=== PATIENT | female | born 1980 | race Caucasian/White ===

== ENCOUNTER 2024-03-12 13:49 | Outpatient (OUT) | payer OTHER, SELFPAY ==
--- NOTE | 2024-03-12 | CONS_ITS ---
CONSULTATION DATE: 03/12/2024 TO: Holli Velazquez M.D. and Ke Leong D.O. CHIEF COMPLAINT: Includes right lower back pain. HISTORY OF PRESENT ILLNESS: Review of systems, past medical/surgical history were obtained and documented on the health questionnaire and is available upon request. She is a 43-year-old female, reports significant pain starting over at least the last one year. It started in her mid back area and radiates down to her right lower back and right hip area. She describes it between 3-7/10 pain, sharp in character, with a throbbing component, increased with activities such as standing, walking, performing transitioning maneuvers. She feels most comfortable in the semi-recumbent position. Denies any change in bowel and bladder habits or new sensorimotor changes in the lower extremities. CURRENT MEDICATIONS: She has been using ibuprofen for at least the last two months with only marginal relief or varying degrees of relief at best. Her RAÚL was 18% on today?s visit. EXAM: Her examination is notable for patient having no clinical radiculopathy or myelopathy involving the lower extremities. She did have severe pain with lumbar facet joint loading maneuvers on the right side at L4-5, L5-S1 with severe myofascial spasm of the lumbar paravertebral muscles. IMPRESSION: Our impression is patient with chronic pain secondary to lumbosacral spondylosis, facet joint loading pain clinically and myofascial spasm. RECOMMENDATIONS: I recommend that she start baclofen 10 mg pills, half to one pill b.i.d., aquatic therapy, and to proceed with a diagnostic right side L4-5, L5-S1 medial branch block. As part of providing excellent, safe, comprehensive care, the following was completed at our patient's visit: 1. A medication reconciliation and review to ensure accurate knowledge of current/active medications, including asking our patients to inform us about any [id number] medications or herbal remedies/nutritional supplements/alternative remedies. 2. A review to specifically ensure our patients have had annual screening for: elevated body mass index (BMI, see intake chart for exact total), tobacco use, screening for depression, and screening for unhealthy alcohol use. When screening is concerning, patients are provided with education and the specific recommendation to discuss the concerning health issue and treatment options with their primary care provider. RAJAN
== END 2024-03-12 13:50 | disposition home or self-care (01) ==
PROVIDERS: PCP Family Medicine; Visit Provider Anesthesiology Pain Medicine
DX: M47.816 Spondylosis without myelopathy or radiculopathy, lumbar region (principal); M62.838 Other muscle spasm
CPT/HCPCS: G0463

== ENCOUNTER 2024-04-02 06:36 | Day surgery (SDC) | payer OTHER, SELFPAY ==
--- OUTSIDE RECORDS SUMMARY | 2024-04-02 06:39 | XMS_ITS | CCD ---
Author Organization [facility] Care Team Providers Care Supervisor Painting Name Role Phone Zena Lake MD Primary Care Provider AKIL SMILEY Attending ZENA Morris Primary Care Unavailable DILEEP GARLAND Attending DILEEP Johnson Referring Unavailab TC Huggins Attending TC Murphy Referring Unavailable HARLEY GUEVARA Attending TC Murphy Referring Unavailable Medications Completed/Discontinued Medications Medication Drug Class(es) Dates Sig (Normalized) Sig (Original) Ethinyl Estradiol / Levonorgestrel (3 sources) Progestin, Estrogen, Progestin-containi ng Intrauterine Device Start: 09-08-2023 End: 09-08-2023 Levonorgestrel-Ethi nyl Estrad (AVIANE) 0.1mg - 20mcg per tablet Indications: Endometriosis Take 1 tablet by mouth as directed. Take 3 112 tablet 4 09/08/2023 09/08/2023 Discontinued Start: 09-08-2023 take 1 tablet by montez th every week Levonorgestrel-Ethinyl Estrad (AVIANE) 0.1mg - 20mcg per tablet Indications: Endometriosis Take 1 tablet by mouth as directed. Skip week of placebo pills and start new blister pack. 112 tablet 4 09/08/2023 Active Comment on above: Take 1 tablet by montez th as directed. Skip week of placebo pills and start new blister pack. Take 1 tablet by montez th as directed. Take 3 Ethinyl Estradiol / norgestimate (1 source) Progestin, Estrogen Start: 10-07-20 End: 09-08-20 23 take 1 tablet by mouth once daily Norgestimate-Ethinyl Estradiol (TRI-SPRINTEC) 0.18/0.215/0.25 mg-35 mcg (28) ORAL Tab Take 1 tablet by mouth once daily. 1 Package 11 10/07/2011 09/08/2023 Discontinued (Discontinued by Patient) Comment on above: Take 1 tablet by montez th once daily. ibuprofen 800 mg oral tablet (1 source) Nonsteroidal Anti-inflammatory Drug Start: 10-07-20 11 End: 09-08-20 23 take 1 tablet by mouth every eight hours as needed ibuprofen 800 mg ORAL tablet Take 1 tablet by mouth every 8 hours as needed for Pain. 60 tablet 1 10/07/2011 09/08/2023 Discontinued (Discontinued by Patient) Comment on above: Take 1 tablet by montez th every 8 hours as needed for Pain. spironolactone 100 mg oral tablet (2 sources) Aldosterone Antagonist take 1 tablet by mouth once daily spironolactone (ALDACTONE) 100 mg tablet Take 100 mg by mouth once daily. 0 Active Comment on above: Take 100 mg by mouth once daily. Problems Problem Classification Problem Date Documented Date Episodic/Chronic Endometriosis (4 sources) Endometriosis (clinical); Translations: [Endometriosis, unspecified] Onset: 09-08-2023 09-08-2023 Chronic Results Test Name Value Interpretation Reference Range Facil ity MR LUMBAR SPINE WO CONTRASTo n 03-15-2024 MR LUMBAR SPINE WO CONTRAST EXAM: MR LUMBAR SPINE WO CONTRAST History: Low back pain Technique: Multiplanar multisequence MRI of the lumbar spine was obtained without intravenous contrast. Comparison: Lumbar spine radiographs February 06, 2024 Findings: The conus medullaris ends normally. The vertebral body heights are well maintained. There is no aggressive bone marrow signal abnormality. Disc desiccation and moderate intervertebral disc height loss at L5-S1. Degenerative endplate changes at L5-S1. L1-L2: No significant disc bulge or high-grade spinal canal or neuroforaminal stenosis. L2-L3: No significant disc bulge or high-grade spinal canal or neuroforaminal stenosis. L3-L4: No significant disc bulge or high-grade spinal canal or neuroforaminal stenosis. L4-L5: No significant disc bulge or high-grade spinal canal or neuroforaminal stenosis. L5-S1: Approximately 8 mm of anterolisthesis of L5 on S1 secondary to L5 spondylolysis. Small disc bulge. Mild facet arthropathy. Moderate bilateral neural foraminal stenosis. No spinal canal stenosis. Visualized paravertebral soft tissues appear within normal limits. IMPRESSION: Degenerative changes of the lumbar spine as detailed. ELECTRONICALLY SIGNED BY: Vishnu Melendez, Normal Not Available XR LUMBAR SPINE 4+ VIEWS WIT H FLEXION EXTENSIONon 02-06-2024 XR LUMBAR SPINE 4+ VIEWS WITH FLEXION EXTENSION EXAMINATION: XR LUMBAR SPINE 4+ VIEWS WITH FLEXION EXTENSION TECHNIQUE: 7 views of the lumbar spine. HISTORY: Low back pain COMPARISONS: None available. FINDINGS: There is approximately 10 mm of anterolisthesis of L5 on S1 in the neutral position which does not significantly change with flexion or extension. This anterolisthesis is secondary to L5 spondylolysis. Lumbar vertebral body heights are maintained. Moderate intervertebral disc height loss at L5-S1. Mild facet arthropathy of the lower lumbar spine. IMPRESSION: No acute osseous abnormality. Degenerative changes of the lower lumbar spine. ELECTRONICALLY SIGNED BY: Vishnu Melendez DO Normal Not Available Kelli 09-22-2023 [facility] Telephone (OBOLTW) NOA SILVESTRE ([id number]) 1980 F [place] Date Time Provider Department 09/22/23 KAIL SMILEY During your visit today, we recorded the following information about you: Gilda Whitfield RN 09/22/2023 3:48 PM Signed Letter received from [facility]- No records found on pt. Scanned into pt chart. Allergies As of Date: 09/22/2023 Noted Allergy Reaction NO KNOWN ALLERGIES 05/21/2010 Date Reviewed: 09/08/2023 Reviewed by: Mounika Brandon LPN - Fully Assessed Reason for Visit: Request Outside Medical Records [[id number]] Prescriptions as of 09/22/2023 - spironolactone (ALDACTONE) 100 mg tablet Take 100 mg by mouth once daily. - Levonorgestrel-Ethinyl Estrad (AVIANE) 0.1mg - 20mcg per tablet Take 1 tablet by mouth as directed. Skip week of placebo pills and start new blister pack. Problem List As Of Date 09/22/2023 Noted Resolved Endometriosis [N80.9] 09/08/2023 Encounter Status:Closed by GILDA WHITFIELD RN on 09/22/23 [facility] CNOVon 09-08-2023 CNOV Office Visit (OBOLTW ) NOA SILVESTRE ([id number]) 1980 F [place] Date Time Provider Department 09/08/23 9:00 AM AKIL SMILEY OBOLTW During your visit today, we recorded the following information about you: Pulse Blood pressure Weight Last Period 81/minute 112/78 82.1 kg 08/15/23 Akil Smiley MD 09/08/2023 2:07 PM Signed [facility] VISIT Subjective Noa is a 42 year old who presents with concern for worsening endometriosis pain. HPI: Noa reports dull aching back in her side and back. The pain has been present more often than not for the last 2 week. It is localized more to her right upper quadrant. It radiates toward her flank and back on that side. Her pain is a 4/10. She reports associated nausea throughout the day. She also reports feeling bloated. She feels like her food is not digesting quickly. She reports that she was diagnosed with endometriosis in 2009 at [place], [place]. Per the last AUDIO EXPERIENCE EXPERT note in our system from 2010, she had an XL, right ovarian cystectomy and resection of endometriosis on 03/17/2010. She reports also having a an emergency surgery in 2010 for intra-abdominal bleeding that was thought to be due to an ectopic as she was newly but was ultimately determined not to be due to an ectopic. Unclear what the etiology of her bleeding was. She was previously prescribed continuous OCPs for suppression prior to her first and was then on DMPA for 8 years after her last . She has been off of that for about 2 years. She has previously had a cholecystectomy in 2012. Menses occur typically every 28 days and last 3-4 days. Heaviest bleeding on day 2. Uses tampons. Changing them q 1.5 hours for hygenic reasons. She passes nickel sized clots with most periods. She reports mild to moderate cramping with menses. She will occasional use ibuprofen with good improvement. Age ?37 years and smoking ?15 cigarettes per day: No Multiple risk factors for arterial cardiovascular disease (such as older age, smoking, diabetes, and hypertension): No Hypertension (systolic ?160 mmHg or diastolic ?100 mmHg): No Venous thromboembolism (VTE; unless on anticoagulation): No Known ischemic heart disease: No History of stroke: No Complicated valvular heart disease (pulmonary hypertension, risk for atrial fibrillation, history of subacute bacterial endocarditis): No Current breast cancer: No Severe (decompensated) cirrhosis: No Hepatocellular adenoma or malignant hepatoma: No Migraine with aura: No Diabetes mellitus of >20 years duration or with nephropathy, retinopathy, or neuropathy: No OB History T3 L3 SAB0 IAB1 Ectopic0 Multiple0 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 Social History Tobacco Use Smoking status: Former Types: Cigarettes Smokeless tobacco: Never Tobacco comments: occasionally Substance Use Topics Alcohol use: Yes Comment: social Drug use: No Current Outpatient Medications Medication Sig spironolactone (ALDACTONE) 100 mg tablet Take 100 mg by mouth once daily. Levonorgestrel-Ethinyl Estrad (AVIANE) 0.1mg - 20mcg per tablet Take 1 tablet by mouth as directed. Skip week of placebo pills and start new blister pack. No current facility-administered medications for this visit. ALLERGIES Allergen Reactions No Known Allergies Review of Systems Constitutional: Negative for chills and fever. HENT: Negative for rhinorrhea, sneezing and sore throat. Respiratory: Negative for cough and shortness of breath. Cardiovascular: Negative for chest pain and palpitations. Gastrointestinal: Positive for abdominal pain and nausea. Negative for constipation, diarrhea and vomiting. Genitourinary: Positive for menstrual problem and pelvic pain. Negative for dyspareunia, dysuria, frequency, urgency, vaginal bleeding and vaginal discharge. Musculoskeletal: Positive for back pain. Negative for neck pain. Skin: Negative for rash and wound. Neurological: Negative for dizziness, syncope, light-headedness and headaches. Psychiatric/Behavioral : Negative for suicidal ideas. The patient is not nervous/anxious. Objective Vitals: Blood pressure 112/78, pulse 81, weight 181 lb (82.1 kg), la (more content not included)... Normal [facility]OBRoots[facility]atedTW[facility] NOA SILVESTRE ([id number]) 1980 F [place] Date Time Provider Department 09/08/23 AKIL SMILEY During your visit today, we recorded the following information about you: Ana John 09/08/2023 11:20 AM Signed Sanjay calling in asking for clarification on the Disp Refills Start End Levonorgestrel-Ethinyl Estrad (AVIANE) 0.1mg - 20mcg per tablet 112 tablet 4 09/08/2023 -- Sig: Take 1 tablet by mouth as directed. Take 3 Sent to pharmacy as: Levonorgestrel-Ethinyl Estrad (AVIANE) 0.1mg - 20mcg per tablet Class: Normal Route: ORAL Order: [id number] E-Prescribing Status: Receipt confirmed by pharmacy (09/08/2023 9:54 AM EDT) It states take 3 please advise, will take a verbal. Akil Smiley MD 09/08/2023 1:30 PM Signed Resent Rx with correct sig. Patient should take one tablet daily. She should skip placebo week of pills and start a new blister pack. Pharmacy should dispense 4 blister packs every 3 months. Allergies As of Date: 09/08/2023 Noted Allergy Reaction NO KNOWN ALLERGIES 05/21/2010 Date Reviewed: 09/08/2023 Reviewed by: Mounika Brandon LPN - Fully Assessed Reason for Visit: Medication Problem [65] Visit Diagnosis:Endometriosi s [N80.9] Prescriptions as of 09/08/2023 - spironolactone (ALDACTONE) 100 mg tablet Take 100 mg by mouth once daily. - Levonorgestrel-Ethinyl Estrad (AVIANE) 0.1mg - 20mcg per tablet Take 1 tablet by mouth as directed. Skip week of placebo pills and start new blister pack. Problem List As Of Date: 09/08/2023 (None) Encounter Status:Closed by MARCIA GA RN on 09/08/23 Normal [facility] HCG QUAL UR B/Oon 09-08-2023 status Negative neg - [facility] Quality Check Yes [facility] Vital Signs Date Time Vital Sign Value Performing Clinician Faci lity 09-08-2023 09:04-0400 Body weight 82.1 kg Akil Smiley MD Work Phone: [facility] 09-08-2023 09:04-0400 Diastolic blood pressure 78 mm[Hg] Akil Smiley MD Work Phone: [facility] 09-08-2023 09:04-0400 Heart rate 81 /min Akil Smiley MD Work Phone: [facility] 09-08-2023 09:04-0400 Systolic blood pressure 112 mm[Hg] Akil Smiley MD Work Phone: [facility] Encounters Encounter Date Encounter Type Care Provider Facility Start: 03-28-2024 End: 03-28-2024 ambulatory HARLEY GUEVARA Not Available Start: 03-15-2024 End: 03-16-2024 ambulatory TC KIM Not Available Start: 02-27-2024 End: 02-27-2024 ambulatory TC KIM Not Available Start: 02-06-2024 End: 02-07-2024 ambulatory DILEEP HOWELLPATRICK Not Available Start: 09-08-2023 Telephone encounter Saw Smiley MD Work Phone: Obstetrics/Gynecolog y Comment on above: Medication Problem Start: 09-08-2023 End: 09-08-2023 ambulatory AKIL SMILEY Facility:[facility] Start: 09-08-2023 End: 09-08-2023 Patient encounter procedure Akil Smiley MD Work Phone: Obstetrics/Gynecolog y Comment on above: Endometriosis (Prima ry Dx) Procedures Date Procedure Procedure Detail Performing Clinician Start: 09-08-2023 Urine test visual color cmprsn meths Akil Smiley MD Work Phone: Plan of Treatment Date Care Activity Detail Author Start: 09-08-2023 End: 09-08-2024 ENDOMETRIOSIS U/S [facility] ENDOMETRIOSIS U/[facility] Anc Imaging Routine Endometriosis Expected: 09/08/2023, Expires: 09/08/2024 [facility] Work Phone: Comment on above: Expected: 09/08/2023 , Expires: 09/08/2024 Start: 07-14-2023 Covid-19 Vaccine ( season) Covid-19 Vaccine () [facility] Start: 07-14-2023 Influenza vaccination Influenza Vacc ine (#1) [facility] Start: 2022 Mammography Mammogram Screening [facility] Start: 11-13-2022 Depression Assessment Depression Ass essment [facility] Start: 09-19-2022 Urine microalbumin profile DTaP,Tdap,Td Vaccine (2 - Td or Tdap) [facility] Start: 02-01-2016 Pap Testing Pap Testing [facility] Start: 2012 HPV Testing HPV Testing [facility] Start: 2000 Hepatitis C Screening Hepatitis C Sc reening [facility] Start: 2000 HIV Screening HIV Screening [facility] Start: 1980 Hepatitis B Vaccine (1 of 3 - 3-dose series) Hepatitis B Vaccine (1 of 3 - 3-dose series) [facility] Payers Date Payer Category Payer Private Health Insurance DAPHNIE CABEZAS [id number] 2022-Present [phone] [address] [place] [address] Open Access [id number] 2021 Private Health Insurance [id number] 1980 Unknown [id number] 1980 Unknown [id number] 1980 Unknown [id number] 1980 Unknown [id number] 1980 Unknown [id number] Social History Date Type Detail Facility Start: [facility]-08-[facility]23 [facility] History of tobacco use Current smoker [facility] History of tobacco use Cigarette Smoker [facility] Start: 09-08-2023 Tobacco use and exposure Smoke less tobacco non-user [facility] Start: 09-08-2023 Alcohol intake Current drinke r of alcohol (finding) [facility] Start: 09-08-2023 History of Social function [facility] Start: 09-08-2023 Tobacco use panel [facility] National Score (1-10 0), lower number is lower risk 88 [facility] Start: 09-08-2023 Tobacco Comment occasionally [facility] Start: 1980 Sex Assigned At Female C [facility] Start: 09-07-2023 Gender identity Identifies as female gender (finding) [facility] Start: 09-07-2023 Sexual orientation Heterosexual (rosalee ying) [facility] Note 09-08-2023 Telephone Encounter - Akil Smiley MD - 09/08/2023 1:29 PM EDTTelephone Encounter - Ana John - 09/08/2023 11:19 AM EDT Note Date & Type Note Facility 09-08-2023 Miscellaneous Notes Formattin g of this note might be different from the original. Resent Rx with correct sig. Patient should take one tablet daily. She should skip placebo week of pills and start a new blister pack. Pharmacy should dispense 4 blister packs every 3 months. Alvinor calling in asking for clarification on the Disp Refills Start End Levonorgestrel-Ethinyl Estrad (AVIANE) 0.1mg - 20mcg per tablet 112 tablet 4 09/08/2023 -- Sig: Take 1 tablet by mouth as directed. Take 3 Sent to pharmacy as: Levonorgestrel-Ethinyl Estrad (AVIANE) 0.1mg - 20mcg per tablet Class: Normal Route: ORAL Order: [id number] E-Prescribing Status: Receipt confirmed by pharmacy (09/08/2023 9:54 AM EDT) It states take 3 please advise, will take a verbal. documented in this encounter [facility] Progress note 09-08-2023 Note Date & Type Note Facility 09-08-2023 Note HNO ID: [id number] Author: Akil Smiley MD Service: ? Author Type: Physician Type: Progress Notes Filed: 09/08/2023 2:07 PM Note Text: [facility] VISIT Subjective Noa is a 42 year old who presents with concern for worsening endometriosis pain. HPI: Noa reports dull aching back in her side and back. The pain has been present more often than not for the last 2 week. It is localized more to her right upper quadrant. It radiates toward her flank and back on that side. Her pain is a 4/10. She reports associated nausea throughout the day. She also reports feeling bloated. She feels like her food is not digesting quickly. She reports that she was diagnosed with endometriosis in 2009 at [place], [place]. Per the last AUDIO EXPERIENCE EXPERT note in our system from 2010, she had an XL, right ovarian cystectomy and resection of endometriosis on 03/17/2010. She reports also having a an emergency surgery in 2011 for intra-abdominal bleeding that was thought to be due to an ectopic as she was newly but was ultimately determined not to be due to an ectopic. Unclear what the etiology of her bleeding was. She was previously prescribed continuous OCPs for suppression prior to her first and was then on DMPA for 8 years after her last . She has been off of that for about 2 years. She has previously had a cholecystectomy in 2011. Menses occur typically every 28 days and last 3-4 days. Heaviest bleeding on day 2. Uses tampons. Changing them q 1.5 hours for hygenic reasons. She passes nickel sized clots with most periods. She reports mild to moderate cramping with menses. She will occasional use ibuprofen with good improvement. Age ?37 years and smoking ?15 cigarettes per day: No Multiple risk factors for arterial cardiovascular disease (such as older age, smoking, diabetes, and hypertension): No Hypertension (systolic ?160 mmHg or diastolic ?100 mmHg): No Venous thromboembolism (VTE; unless on anticoagulation): No Known ischemic heart disease: No History of stroke: No Complicated valvular heart disease (pulmonary hypertension, risk for atrial fibrillation, history of subacute bacterial endocarditis): No Current breast cancer: No Severe (decompensated) cirrhosis: No Hepatocellular adenoma or malignant hepatoma: No Migraine with aura: No Diabetes mellitus of >20 years duration or with nephropathy, retinopathy, or neuropathy: No OB History T3 L3 SAB0 IAB1 Ectopic0 Multiple0 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 Social History Tobacco Use Smoking status: Former Types: Cigarettes Smokeless tobacco: Never Tobacco comments: occasionally Substance Use Topics Alcohol use: Yes Comment: social Drug use: No Current Outpatient Medications Medication Sig spironolactone (ALDACTONE) 100 mg tablet Take 100 mg by mouth once daily. Levonorgestrel-Ethinyl Estrad (AVIANE) 0.1mg - 20mcg per tablet Take 1 tablet by mouth as directed. Skip week of placebo pills and start new blister pack. No current facility-administered medications for this visit. ALLERGIES Allergen Reactions No Known Allergies Review of Systems Constitutional: Negative for chills and fever. HENT: Negative for rhinorrhea, sneezing and sore throat. Respiratory: Negative for cough and shortness of breath. Cardiovascular: Negative for chest pain and palpitations. Gastrointestinal: Positive for abdominal pain and nausea. Negative for constipation, diarrhea and vomiting. Genitourinary: Positive for menstrual problem and pelvic pain. Negative for dyspareunia, dysuria, frequency, urgency, vaginal bleeding and vaginal discharge. Musculoskeletal: Positive for back pain. Negative for neck pain. Skin: Negative for rash and wound. Neurological: Negative for dizziness, syncope, light-headedness and headaches. Psychiatric/Behavioral: Negative for suicidal ideas. The patient is not nervous/anxious. Objective Vitals: Blood pressure 112/78, pulse 81, weight 181 lb (82.1 kg), last menstrual period 08/15/2023. Physical Exam Constitutional: General: She is not in acute distress. Appearance: Normal appearance. She is not ill-appearing, toxic-appearing or diaphoretic. Genitourinary: Right Labia: No rash, tenderness, lesions or skin ch (more content not included)... [facility] History of Present illness Narrative 09-08-2023 Akil Smiley MD - 09/08/2023 9:00 AM EDT Note Date & Type Note Facility 09-08-2023 History of Presen t illness Narrative [facility] VISIT Subjective Noa is a 42 year old who presents with concern for worsening endometriosis pain. HPI: Noa reports dull aching back in her side and back. The pain has been present more often than not for the last 2 week. It is localized more to her right upper quadrant. It radiates toward her flank and back on that side. Her pain is a 4/10. She reports associated nausea throughout the day. She also reports feeling bloated. She feels like her food is not digesting quickly. She reports that she was diagnosed with endometriosis in 2009 at [place], [place]. Per the last AUDIO EXPERIENCE EXPERT note in our system from 2010, she had an XL, right ovarian cystectomy and resection of endometriosis on 03/17/2010. She reports also having a an emergency surgery in 2010 for intra-abdominal bleeding that was thought to be due to an ectopic as she was newly but was ultimately determined not to be due to an ectopic. Unclear what the etiology of her bleeding was. She was previously prescribed continuous OCPs for suppression prior to her first and was then on DMPA for 8 years after her last . She has been off of that for about 2 years. She has previously had a cholecystectomy in 2011. Menses occur typically every 28 days and last 3-4 days. Heaviest bleeding on day 2. Uses tampons. Changing them q 1.5 hours for hygenic reasons. She passes nickel sized clots with most periods. She reports mild to moderate cramping with menses. She will occasional use ibuprofen with good improvement. Age ?37 years and smoking ?15 cigarettes per day: No Multiple risk factors for arterial cardiovascular disease (such as older age, smoking, diabetes, and hypertension): No Hypertension (systolic ?160 mmHg or diastolic ?100 mmHg): No Venous thromboembolism (VTE; unless on anticoagulation): No Known ischemic heart disease: No History of stroke: No Complicated valvular heart disease (pulmonary hypertension, risk for atrial fibrillation, history of subacute bacterial endocarditis): No Current breast cancer: No Severe (decompensated) cirrhosis: No Hepatocellular adenoma or malignant hepatoma: No Migraine with aura: No Diabetes mellitus of >20 years duration or with nephropathy, retinopathy, or neuropathy: No OB History T3 L3 SAB0 IAB1 Ectopic0 Multiple0 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 Social History Tobacco Use Smoking status: Former Types: Cigarettes Smokeless tobacco: Never Tobacco comments: occasionally Substance Use Topics Alcohol use: Yes Comment: social Drug use: No Current Outpatient Medications Medication Sig spironolactone (ALDACTONE) 100 mg tablet Take 100 mg by mouth once daily. Levonorgestrel-Ethinyl Estrad (AVIANE) 0.1mg - 20mcg per tablet Take 1 tablet by mouth as directed. Skip week of placebo pills and start new blister pack. No current facility-administered medications for this visit. ALLERGIES Allergen Reactions No Known Allergies Review of Systems Constitutional: Negative for chills and fever. HENT: Negative for rhinorrhea, sneezing and sore throat. Respiratory: Negative for cough and shortness of breath. Cardiovascular: Negative for chest pain and palpitations. Gastrointestinal: Positive for abdominal pain and nausea. Negative for constipation, diarrhea and vomiting. Genitourinary: Positive for menstrual problem and pelvic pain. Negative for dyspareunia, dysuria, frequency, urgency, vaginal bleeding and vaginal discharge. Musculoskeletal: Positive for back pain. Negative for neck pain. Skin: Negative for rash and wound. Neurological: Negative for dizziness, syncope, light-headedness and headaches. Psychiatric/Behavioral: Negative for suicidal ideas. The patient is not nervous/anxious. Objective Vitals: Blood pressure 112/78, pulse 81, weight 181 lb (82.1 kg), last menstrual period 08/15/2023. Physical Exam Constitutional: General: She is not in acute distress. Appearance: Normal appearance. She is not ill-appearing, toxic-appearing or diaphoretic. Genitourinary: Right Labia: No rash, tenderness, lesions or skin changes. Left Labia: No tenderness, lesions, skin changes or rash. No labial fusion noted. Right Adnexa: tender. Right Adnexa: not full and no mass present. Left Adnexa: not tender, not full and no mass present. No cervical motion tenderness. Uterus is not enlarged, fixed, tender, irregular or prolapsed. No uterine mass detected. HENT: Head: Normocephalic and atraumatic. Eyes: General: No scleral icterus. Right eye: No discharge. Left eye: No discharge. Conjunctiva/sclera: Conjunctivae normal. Cardiovascular: Rate and Rhythm: Normal rate and regular rhythm. Heart sounds: Normal heart sounds. No murmur heard. No friction rub. No gallop. Pulmonary: Effort: Pulmonary effort is normal. No respiratory distress. Breath sounds: Normal breath sounds. No wheezing, rhonchi or rales. Abdominal: General: Abdomen is flat. Bowel sounds are normal. There is no distension. Palpations: Abdomen is soft. Tenderness: There is abdominal tenderness (diffuse cline abdominal). There is no guarding or rebound. Musculoskeletal: Cervical back: Normal range of motion. Neurological: General: No focal deficit present. Mental Status: She is alert and oriented to person, place, and time. Skin: General: Skin is warm and dry. Coloration: Skin is not jaundiced. Psychiatric: Mood and Affect: Mood normal. Behavior: Behavior normal. Thought Content: Thought content normal. Judgment: Judgment normal. Vitals reviewed. Exam conducted with a hogshead hooper present (Mounika Brandon MA). Assessment & Plan Problem List Items Addressed This Visit Endometriosis - Primary Overview Reported surgical diagnosis in 2009 in [place], [place] Current suppressive method: - Levonorgestrel - Ethinyl Estradiol (AVIANE) 0.1mg - 20mcg per tablet Prior suppressive method: - Depo medroxyprogesterone acetate IM Current Assessment & Plan Assessment: Noa is a 42 year old with a history of known endometriosis who has been off of suppressive medications for approximately 8 years and is now presenting with worsening pelvic pain symptoms. Abdominal and bimanual exams today are without focal abnormalities. Diffuse tenderness on palpation of the abdomen was noted. No recent imaging in our system to evaluate for adnexal pathology. Discussed the importance of menstrual suppression in patients with endometriosis to prevent pain and sequelae such intraperitoneal inflammation and scarring. I recommend starting continuous dosing of combined oral contraceptive pills for menstrual suppression and suppression of her endometriosis. Noa reports that she previously discontinued her DMPA due to associated mood symptoms and was concerned about mood related effects of combined oral contraceptive pills. I explained that the primary treatment for endometriosis is menstrual suppression and this is most exclusively achieved with exogenous hormones. I further explained that I cannot predict exactly her response to each exogenous hormones, but the dosing of progestins and combined oral contraceptive pills tends to be significantly less than the high-dose of medroxyprogesterone in the Depo-Provera injection. I also advised that there are multiple formulations of combined oral contraceptive pills on the market all with varying progestins. Encouraged her to reach out if unwanted side effects arise as her formulation can be changed to one with a different progestin or a different dose of estrogen as needed. Advised that imaging of the pelvis is warranted given her diffuse discomfort. Endometriosis pelvic ultrasound ordered. We also discussed using scheduled NSAIDs such as ibuprofen 600 mg every 6 hours as needed for pain related to her endometriosis. Also discussed that pending her response to medical management and the results of her endometriosis ultrasound, referral for surgical excision of endometriosis may be warranted. All questions answered to the best of my ability Plan: - schedule endometriosis ultrasound in [facility] at earliest convenience Relevant Medications Levonorgestrel-Ethinyl Estrad (AVIANE) 0.1mg - 20mcg per tablet Other Relevant Orders ENDOMETRIOSIS U/S [facility] HCG QUAL UR B/O (Completed) Follow Up Return for routine gynecologic wellness visit. Akil Smiley MD he/him/his Associate Staff Physician Obstetrics & Gynecology [place] 09/08/2023 2:06 PM --------- Medical Decision Making: Problems: Moderate: 1+ chronic illnesses with change Data: Unique source(s) for external note(s) reviewed: 1 Unique test(s) ordered: 2 Risk: Low: Low risk from testing/treatment Moderate: Drug management Medical Decision Making Level: 4 - Moderate documented in this encounter [facility] Evaluation note Note Date & Type Note Facility Evaluation note Diagnosis Endometriosis Endometriosis, site unspecified documented in this encounter [facility] Evaluation note Note Date & Type Note Facility Evaluation note Diagnosis Endometriosis- Primary Endometriosis, site unspecified documented in this encounter [facility] Reason for referral (narrative) Diagnostic Procedure Only (Routine) - Authorized Note Date & Type Note Facility Reason for referral (narrati ve) Specialty Diagnoses / Procedures Referred By Lindy olvera Referred To Contact [facility] Diagnoses Endometriosis Procedures ENDOMETRIOSIS U/S [facility] US PELVIC NONOBSTETRIC REAL[place] [id number] [place] [address] [facility] [address] [place] [address] Referral ID Status Reason Start Date Expiration Date Visits Requested Visits Authorized [id number] Authorized Auto-Generat ed Referral 3 09/07/2024 1 1 [facility] Summary Purpose Family History No Family History Records FoundNo Family History Records Found Advance Directives No Advanced Directives Records FoundNo Advanced Directives Records Found Additional Source Comments Source Comments (unrecognize d section and content) In the event this informatio n is protected by the Federal Confidentiality of Alcohol and Drug Abuse Patient Records regulations: The Federal rules restrict any use of the information to criminally investigate or prosecute any alcohol or drug abuse patient.[facility] the event this information is protected by the Federal Confidentiality of Alcohol and Drug Abuse Patient Records regulations: The Federal rules restrict any use of the information to criminally investigate or prosecute any alcohol or drug abuse patient.[facility] Reason for Visit (unrecogniz ed section and content) Reason Comments Medication Problem Reason Comments Endometriosis Patient is having se [place] pain again, SHE SAID ITS BEEN CLEAR FOR ABOUT 8 YEARS. Care Teams (unrecognized sec tion and content) Supervisor Painting Relationship Specialty Start Date End Date Wonderly, Zena Thacker MD PCP - General 05/18/10 Supervisor Painting Relationship Specialty Start Date End Date Alenly, Zena Thacker MD PCP - General 05/18/10 INFORMATION SOURCE (unrecogn ized section and content) DATE CREATED AUTHOR 09/24/2023 [facility] DATE CREATED AUTHOR AUTHOR'S ORGANIZ ATION 03/31/2024 [facility] FOR RECORDS PERTAINING TO PATIENTS WHO ARE OR HAVE BEEN ENROLLED IN A CHEMICAL DEPENDENCY/SUBSTANCEABUSE PROGRAM, SOME INFORMATION MAY BE OMITTED. This clinical summary was aggregated from multiple sources. Caution should be exercised in using it in the provision of clinical care. This summary normalizes information from multiple sources, and as a consequence, information in this document may materially change the coding, format and clinical context of patient data. In addition, data may be omitted in some cases. CLINICAL DECISIONS SHOULD BE BASED ON THE PRIMARY CLINICAL RECORDS. [facility] [employer] provides no warranty or guarantee of the accuracy or completeness of information in this document.
[2024-04-02 06:51] VITALS: BP 111/65; PULSE 75; TEMP 36.3; O2SAT 96
[2024-04-02 07:02] LABS: HCG Qualitative NEGATIVE (NEGATIVE)
[2024-04-02 07:56] VITALS: BP 105/57; BP 107/58; PULSE 72; PULSE 75; O2SAT 92; O2SAT 95
[2024-04-02] MEDS: BUPIVACAINE HCL 0.25% PF 25 MG/10 ML VIAL 3 ML INJ (07:57)
--- NOTE | 2024-04-02 09:05 | W.PM.PROCNOT ---
Date of procedure: 04/02/24 Pre-op diagnosis: Lumbar spondylosis Post-op diagnosis: same as pre-op Procedure: Right Lumbar4/5, 5/Sacral 1 medial branch block Under fluoroscopic guidance Solution injected: 2millilitersMarcaine 0.25% Anesthesia :none Immediate complications none Time out process compliant After informed consent obtained from the patient placed in the Prone proposition . area was prepped and draped in a sterile fashion using Cloraprep .25 gauge spinal needle inserted over each of the above mentioned target areas . [place] were directed towards the target under fluoroscopic guidance . after encountering each of the targets , no indication of intravascular intraneuronal or intrathecal needle tip placement. Then 0 .5 to 1 Milliliter was injected at each level. [place] removed postoperatively. patient transferred to recovery in stable condition to be discharged home after meeting criteria Anesthesia: Local Surgeon: Steph Morales Condition: stable
== END 2024-04-02 08:00 | disposition home or self-care (01) ==
PROVIDERS: PCP Family Medicine; Visit Provider Anesthesiology Pain Medicine
DX: M47.816 Spondylosis without myelopathy or radiculopathy, lumbar region (principal)
CPT/HCPCS: 36415; 64493; 64494; 84703

== ENCOUNTER 2024-04-25 08:00 | Outpatient (OUT) | payer OTHER, SELFPAY ==
--- OUTSIDE RECORDS SUMMARY | 2024-04-25 08:04 | XMS_ITS | CCD ---
Author Organization [facility] Care Team Providers Care Hired Hand Name Role Phone Zena Lake MD Primary Care Provider AKIL SMILEY Attending ZENA Morris Primary Care Unavailable DILEEP GARLAND Attending DILEEP Johnson Referring Unavailab TC Huggins Attending Unavailable TC KIM Referring Unavailable HARLEY GUEVARA Attending TC Murphy Referring Unavailable HARLEY GUEVARA [...] source) Progestin, Estrogen Start: 10-07-20 End: 09-08-20 take 1 tablet by mouth once daily [...] lower lumbar spine. ELECTRONICALLY SIGNED BY: Vishnu Melendez, Normal Not Available Kelli 09-22-2023 [facility] Telephone (OBOLTW) NOA SILVESTRE ([id number]) 1980 F [place] Date Time Provider Department 09/22/23 AKIL SMILEY During your visit today, we recorded the following information about you: Gilda Whitfield RN 09/22/2023 3:48 PM Signed Letter [facility]- No records found on pt. Scanned into pt chart. Allergies As of Date: 09/22/2023 Noted Allergy Reaction NO KNOWN ALLERGIES 05/21/2010 Date Reviewed: 09/08/2023 Reviewed by: Mounika Brandon LPN - Fully Assessed Reason for Visit: Request Outside Medical Records [[id number]] Prescriptions as of 09/22/2023 - spironolactone (ALDACTONE) 100 mg tablet Take 100 mg by mouth once daily. - Levonorgestrel-Ethinyl Estrad (AVIANE) 0.1mg - 20mcg per tablet Take 1 tablet by mouth as directed. Skip week of placebo pills and start new blister pack. Problem List As Of Date 09/22/2023 Noted Resolved Endometriosis [N80.9] 09/08/2023 Encounter Status:Closed by GILDA WHITFIELD RN on 09/22/23 [facility] CNOVon 09-08-2023 CNOV Office Visit (OBOLTW ) NOA SILVESTRE ([id number]) 1980 F [place] Date Time Provider Department 09/08/23 9:00 AM AKIL SMILEY OBOLTW During your visit today, we recorded the following information about you: Pulse Blood pressure Weight Last Period 81/minute 112/78 82.1 kg 08/15/23 Akil Smiley MD 09/08/2023 2:07 PM Signed [facility] OFFICE VISIT Subjective Noa is a 42 [...] was diagnosed with endometriosis in 2009 at [place], [place]. Per the last BLOCK MECHANIC note in our system from 2010, she [...] L3 SAB0 IAB1 Ectopic0 Multiple0 Live Births3 Filer Helper History LMP: 08/15/2023 (Approximate), Having periods Age at Menarche: Age at First : Age at Menopause: Filer Helper History Comments: Sexual Activity: Yes; Male Contraception: [...] kg), la (more content not included)... Normal [facility] 09-08-2023 [facility] (OBOLTW) NOA SILVESTRE ([id number]) 1980 F [place] Date Time Provider Department 09/08/23 AKIL SMILEY During your visit today, we recorded the following information about you: Ana John 09/08/2023 11:20 AM Signed Alvinor calling in asking for clarification on the Disp Refills Start End Levonorgestrel-Ethinyl Estrad (AVIANE) 0.1mg - 20mcg per tablet 112 tablet 4 09/08/2023 -- Sig: Take 1 tablet by mouth as directed. Take 3 Sent to pharmacy as: Levonorgestrel-Ethinyl Estrad (AVIANE) 0.1mg - 20mcg per tablet Class: Normal Route: ORAL Order: [id number] E-Prescribing Status: Receipt confirmed by pharmacy (09/08/2023 [...] by MARCIA GA RN on 09/08/23 Normal [facility] HCG QUAL UR B/Oon 09-08-2023 status Negative neg - pos [facility] Quality Check Yes [facility] Vital Signs Date Time Vital Sign Value Performing Clinician Bertin flores 09-08-2023 09:04-0400 Body weight 82.1 kg Akil Smiley MD Work Phone: [facility] 09-08-2023 09:04-0400 Diastolic blood pressure 78 mm[Hg] Akil Smiley MD Work Phone: [facility] 09-08-2023 09:04-0400 Heart rate 81 /min Akil Smiley MD Work Phone: [facility] 09-08-2023 09:04-0400 Systolic blood pressure 112 mm[Hg] Akil Smiley MD Work Phone: [facility] Encounters Encounter Date Encounter Type Care Provider Facility Start: 04-22-2024 End: 04-22-2024 ambulatory HARLEY GUEVARA Not Available Start: 03-28-2024 End: 03-28-2024 ambulatory HARLEY GUEVARA Not Available Start: 03-15-2024 End: 03-15-2024 ambulatory TC KIM Not Available Start: 02-27-2024 End: 02-27-2024 ambulatory TC KIM Not Available Start: 02-06-2024 End: 02-06-2024 ambulatory DILEEP GARLAND Not Available Start: 09-08-2023 Telephone encounter Saw Smiley MD Work Phone: Obstetrics/Gynecolog y Comment on above: Medication Problem Start: 09-08-2023 End: 09-08-2023 ambulatory AKIL SMILEY Facility:[facility] Start: 09-08-2023 End: 09-08-2023 Patient encounter procedure Akil Smiley MD Work Phone: Obstetrics/Gynecolog y Comment on above: Endometriosis (Prima ry Dx) Procedures Date Procedure Procedure Detail Performing Clinician Start: 09-08-2023 Urine test visual color cmprsn meths Akil Smiley MD Work Phone: Plan of Treatment Date Care Activity Detail Author Start: 09-08-2023 End: 09-08-2024 ENDOMETRIOSIS [facility] ENDOMETRIOSIS [facility]/S [facility] Anc Imaging Routine Endometriosis Expected: 09/08/2023, Expires: 09/08/2024 [facility] Work Phone: Comment on above: Expected: 09/08/2023 , Expires: 09/08/2024 Start: 07-14-2023 Covid-19 Vaccine () Covid-19 Vaccine () [facility] Start: 07-14-2023 Influenza vaccination Influenza Vacc ine (#1) [facility] Start: 2022 Mammography Mammogram Screening [facility] Start: 11-13-2022 Depression Assessment Depression Ass essment [facility] Start: 09-19-2022 Urine microalbumin profile DTaP,Tdap,Td Vaccine (2 - Td or Tdap) [facility] Start: 02-01-2016 Pap Testing Pap Testing [facility] Start: 2012 HPV Testing HPV Testing [facility] Start: 2000 Hepatitis C Screening Hepatitis C Sc cny [facility] Start: 2000 HIV Screening HIV Screening [facility] Start: 1980 Hepatitis B Vaccine (1 of 3 - 3-dose series) Hepatitis B Vaccine (1 of 3 - 3-dose series) [facility] Payers Date Payer Category Payer Private Health Insurance DAPHNIE KILPATRICK OAP [id number] 2022-Present [phone] [id number] [place] [address] Open Access [id number] 2021 Private Health Insurance [id number] 1980 Unknown [id number] 1980 Unknown [id number] 1982 Unknown [id number] 1982 Unknown [id number] 1980 Unknown [id number] 1980 Unknown [id number] Social History Date Type Detail Facility Start: 09-08-2023 [facility] History of tobacco use Current smoker [facility] History of tobacco use Cigarette Smoker [facility] Start: 09-08-2023 Tobacco use and exposure Smoke less tobacco non-user [facility] Start: 09-08-2023 Alcohol intake Current drinke r of alcohol (finding) [facility] Start: 09-08-2023 History of Social function [facility] Start: 09-08-2023 Tobacco use panel [facility] National Score (1-10 0), lower number is lower risk 88 [facility] Start: 09-08-2023 Tobacco Comment [facility] Start: 1980 Sex Assigned At Female [facility] Start: 09-07-2023 Gender identity Identifies as female gender (finding) [facility] Start: 09-07-2023 Sexual orientation Heterosexual (rosalee ying) [facility] Note 09-08-2023 Telephone Encounter - Akil Smiley [...] dispense 4 blister packs every 3 months. Sanjay calling in asking for clarification on the Disp Refills Start End Levonorgestrel-Ethinyl Estrad (AVIANE) 0.1mg - 20mcg per tablet 112 tablet 4 09/08/2023 -- Sig: Take 1 tablet by mouth as directed. Take 3 Sent to pharmacy as: Levonorgestrel-Ethinyl Estrad (AVIANE) 0.1mg - 20mcg per tablet Class: Normal Route: ORAL Order: [id number] E-Prescribing Status: Receipt confirmed by pharmacy (09/08/2023 9:54 AM EDT) It states take 3 please advise, will take a verbal. documented in this encounter [facility] Progress note 09-08-2023 Note Date & Type Note Facility 09-08-2023 Note HNO ID: [id number] Author: Akil Smiley MD Service: ? Author Type: Physician Type: Progress Notes Filed: 09/08/2023 2:07 PM Note Text: [facility] OFFICE VISIT Subjective Noa is a 42 [...] was diagnosed with endometriosis in 2009 at [place], [place]. Per the last BLOCK MECHANIC note in our system from 2010, she [...] L3 SAB0 IAB1 Ectopic0 Multiple0 Live Births3 Filer Helper History LMP: 08/15/2023 (Approximate), Having periods Age at Menarche: Age at First : Age at Menopause: Filer Helper History Comments: Sexual Activity: Yes; Male Contraception: [...] or skin ch (more content not included)... [facility] History of Present illness Narrative 09-08-2023 Akil Smiley MD - 09/08/2023 9:00 AM EDT Note Date & Type Note Facility 09-08-2023 History of Presen t illness Narrative [facility] OFF[facility] VISIT Subjective Noa is a 42 [...] was diagnosed with endometriosis in 2009 at [place], [place]. Per the last BLOCK MECHANIC note in our system from 2010, she [...] L3 SAB0 IAB1 Ectopic0 Multiple0 Live Births3 Filer Helper History LMP: 08/15/2023 (Approximate), Having periods Age at Menarche: Age at First : Age at Menopause: Filer Helper History Comments: Sexual Activity: Yes; Male Contraception: [...] normal. Vitals reviewed. Exam conducted with a administrative assistant office manager present (Mounika Brandon MA). Assessment & Plan Problem List Items Addressed This Visit Endometriosis - Primary Overview Reported surgical diagnosis in 2009 in [place], [place] Current suppressive method: - Levonorgestrel - [...] per tablet Other Relevant Orders ENDOMETRIOSIS U/S I HCG QUAL UR B/O (Completed) Follow Up Return for routine gynecologic wellness visit. Akil Smiley MD he/him/his Associate Staff Physician Obstetrics & Gynecology [place] 09/08/2023 2:06 PM --------- Medical Decision Making: Problems: Moderate: 1+ chronic illnesses with change Data: Unique source(s) for external note(s) reviewed: 1 Unique test(s) ordered: 2 Risk: Low: Low risk from testing/treatment Moderate: Drug management Medical Decision Making Level: 4 - Moderate documented in this encounter [facility] Evaluation note Note Date & Type Note Facility Evaluation note Diagnosis Endometriosis Endometriosis, site unspecified documented in this encounter [facility] Evaluation note Note Date & Type Note Facility Evaluation note Diagnosis Endometriosis- Primary Endometriosis, site unspecified documented in this encounter [facility] Reason for referral (narrative) Diagnostic Procedure Only (Routine) - Authorized Note Date & Type Note Facility Reason for referral (narrati ve) Specialty Diagnoses / Procedures Referred By Contac t Referred To Contact [facility] Diagnoses Endometriosis Procedures ENDOMETRIOSIS U/S WHI US PELVIC NONOBSTETRIC REAL[place] [id number] [place] [address] [facility] [address] [place] [address] Referral ID Status Reason Start Date Expiration Date Visits Requested Visits Authorized [id number] Authorized Auto-Generat ed Referral 3 09/07/2024 1 1 [facility] Summary Purpose Family History No Family History [...] or prosecute any alcohol or drug abuse patient.[facility] the event this information is protected by the Federal Confidentiality of Alcohol and Drug Abuse Patient Records regulations: The Federal rules restrict any use of the information to criminally investigate or prosecute any alcohol or drug abuse patient.[facility] Reason for Visit (unrecogniz ed section and content) Reason Comments Medication Problem Reason Comments Endometriosis Patient is having se flores pain again, SHE SAID ITS BEEN CLEAR FOR ABOUT 8 YEARS. Care Teams (unrecognized sec tion and content) Hired Hand Relationship Specialty Start Date End Date Wonderly, Zena Thacker MD PCP - General 05/18/10 Hired Hand Relationship Specialty Start Date End Date Wonderly, eZna Thacker MD PCP - General 05/18/10 INFORMATION SOURCE (unrecogn ized section and content) DATE CREATED AUTHOR 09/24/2023 [facility] DATE CREATED AUTHOR AUTHOR'S GROVER CASPER 04/22/2024 [facility] dical Specialists [facility] FOR RECORDS PERTAINING TO PATIENTS WHO ARE [...] BE BASED ON THE PRIMARY CLINICAL RECORDS. [employer] provides no warranty or guarantee of the accuracy or completeness of information in this document.
--- NOTE | 2024-04-25 08:05 | P.CN_ITS ---
Consult Note: HPI Data of Consult Patient: known to practice within the last 3 years Requesting Physician: Yanet Mendez NP Primary Care Provider: SALVATORE LORA Consult Narrative Reason for consult: chronic right sided low back pain Narrative: Noa Burden a pleasant 43 year old female presents for evaluation and management of chronic right sided low back pain without radiculopathy. Patient has had chronic low back pain greater than 1 year that has failed to respond to greater than 6 weeks of PT/HEP, conservative medications such as tylenol and ibuprofen, and heat/ice. Patient reports pain 3/10, increasing to 7/10 with running, standing, walking, twisting, heavy lifting. Pain sharp aching throbbing, occasional sharp and intense. recently underwent right L4-5 L5-S1 facet medial branch block #1 with no improvement. Patient has not started baclofen 10mg BID PRN due to concerns of side effects. cc:: CC: Yanet Mendez NP Review of Systems ROS Status of ROS 10 or more systems reviewed and unremark able except as noted in history and below Musculoskeletal Reports: back pain and joint pain PFSH PFS Medical History (Updated 04/25/24 @ 08:32 by Yanet Mendez NP) Neck pain ?M54.2 - Cervicalgia (ICD-10) Low back pain ?M54.50 - Low back pain, unspecified (ICD-10) Asthma ?J45.909 - Unspecified asthma, uncomplicated (ICD-10) Form of muscle Irregular heart beat ?I49.9 - Cardiac arrhythmia, unspecified (ICD-10) Surgical History S/P cholecystectomy ?Z90.49 - Acquired absence of other specified parts of digestive tract (ICD- 10) S/P laparoscopy ?Z98.890 - Other specified postprocedural states (ICD-10) S/P laparotomy ?Z98.890 - Other specified postprocedural states (ICD-10) Meds Home Medications and Allergies Home Medications ?Medication ?Instructions ?Recorded ?Confirmed ?Type baclofen 10 mg tablet 10 mg PO BID PRN muscle spasm 03/13/24 04/02/24 History semaglutide 0.25 mg or 0.5 mg (2 0.25 mg subcut QWEEK 03/13/24 04/02/24 History mg/3 mL) subcutaneous pen injector (Ozempic) spironolactone 100 mg tablet 100 mg PO DAILY 03/13/24 04/02/24 History Allergies Allergy/AdvReac Type Severity Reaction Status Date / Time No Known Drug Allergies Allergy Verified 04/02/24 06:58 Exam Constitutional Documenting provider has reviewed patient's vital signs: yes Common normals: no apparent distress, oriented x3, healthy appearing, alert and well nourished General appearance: cooperative HENMT Common normals: normocephalic, hearing grossly normal bilaterally and moist oral mucous membranes Head and scalp: normocephalic Eye Common normals: PERRL Pupil: PERRL Neck & C-Spine Common normals: full ROM General: normal visual inspection Chest Common normals: inspection of chest normal Respiratory Common normals: normal respiratory effort, no retractions and no use of accessory muscles Back & Pelvis Lumbar spine/lower back: ROM limited, pain with ROM, paraspinal muscle tenderness, paraspinal muscle spasm and straight leg raise negative bilaterally Sacroiliac joints: SI joint(s) abnormal Other: Right SIJ positive eloy(patricks), gaenslens, thigh thrust, compression test notable myofascial swelling/spasms to right paralumbar spine tenderness and dysthesia across right superior gluteal nerve Extremity Common normals: normal to inspection and full ROM Neuro Common normals: oriented x3, CN's II-XII intact bilaterally, moves all extremities, no focal motor deficits, no sensory deficits noted, deep tendon reflexes 2+ bilaterally and gait normal Sensorium/orientation: alert Motor exam: strength 5/5 throughout and no movement abnormalities noted Psych Common normals: mental status grossly normal, thought process normal, cooperative, affect normal, speech normal and activity/motor behavior normal Speech: normal speech Thought process: normal thought process Results Additional Findings Additional findings: If on a controlled substance or opioids, I have checked an [place]AR[place] report on this patient and there are no aberrancies noted in the prescribing history.??If on a controlled substance or opioid a drug screen was completed and reviewed within the last year, and if there has not been a drug screen completed we ordered one today to monitor higher risk, state monitored pain medication use. As part of providing excellent, safe, comprehensive care, the following was completed at our patient's visit: 1. A medication reconciliation and review to ensure accurate knowledge of current/active medications, including asking our patients to inform us about any asbi-din-ghmipdz medications or herbal remedies/nutritional supplements/alternative remedies. 2. A review to specifically ensure our patients have had annual screening for screening for depression, screening for tobacco use, and screening for unhealthy alcohol use. For concerning screenings had a discussion with the patient, provided patient education, and recommended follow-up with primary care provider when appropriate. If patient noted with a risk of falling, they received education on strength, gait, and balance training to prevent future risk of falling. Assessment and Plan Assessment and Plan (1) Unspecified mononeuropathy of right lower limb: (2) Chronic right-sided low back pain without sciatica: (3) Lumbar spondylosis: (4) Spondylolisthesis, lumbar region: (5) Sacroiliitis: (6) Myofascial pain: Plan right superior gluteal nerve block under fluoroscopy working towards thermal RFA discussed utilizing baclofen 5-10mg BID PRN TENS unit discussed and prescribed, previously found significant benefit continue progressive care manager as tolerated, hx of leg length discrepancy requiring orthotics for right shoe. notable SIJ pain on exam today continue HEP as tolerated f/u after injection
== END 2024-04-25 08:01 | disposition home or self-care (01) ==
LOC: PM 08:01
PROVIDERS: PCP Family Medicine; Visit Provider Nurse Practitioner
DX: G57.91 Unspecified mononeuropathy of right lower limb (principal); M54.50 Low back pain, unspecified; M47.816 Spondylosis without myelopathy or radiculopathy, lumbar region; M43.16 Spondylolisthesis, lumbar region; M46.1 Sacroiliitis, not elsewhere classified; M79.18 Myalgia, other site
CPT/HCPCS: G0463

== ENCOUNTER 2024-04-30 07:21 | Day surgery (SDC) | payer OTHER, SELFPAY ==
[2024-04-30 07:35] VITALS: BP 102/66; PULSE 85; TEMP 36.2; O2SAT 98
[2024-04-30 08:01] LABS: HCG Qualitative NEGATIVE (NEGATIVE); Internal Control Within Normal Limits
[2024-04-30 08:25] VITALS: BP 105/67; PULSE 70; O2SAT 98
[2024-04-30 08:26] VITALS: BP 108/65; PULSE 70; O2SAT 98
[2024-04-30] MEDS: BUPIVACAINE HCL 0.25% PF 25 MG/10 ML VIAL 2 ML INJ (08:30)
--- NOTE | 2024-04-30 09:19 | W.PM.PROCNOT ---
Date of procedure: 04/30/24 Pre-op diagnosis: Right superior gluteal neuritis Post-op diagnosis: same as pre-op Procedure: Right Superior gluteal nerve block, diagnostic Performed under fluoroscopic guidance Immediate complications none Anesthesia: none Solution used for injection: In each syringe, 2 milliliters 0.25% Marcaine 2.5 mL is used for injection for each side Time out process compliant After informed consent obtained patient was brought to the procedure room placed in the prone position skin overlying the area was prepped and draped in a sterile fashion using betadine. 25 gauge spinal needle Insert over each of the target areas identified in fluoroscopy corresponding needles were advanced Under fluoroscopic guidance until the target/targets encountered, no indication of intravascular or Intraneuronal needle tip placement. Solution injected.needles removed post procedurally. patient transferred to recovery room in stable condition to be discharged home after meeting criteria Anesthesia: Local Surgeon: Steph Morales Condition: stable
== END 2024-04-30 08:39 | disposition home or self-care (01) ==
LOC: SURGOUT 07:21
PROVIDERS: PCP Family Medicine; Visit Provider Anesthesiology Pain Medicine
DX: G57.81 Other specified mononeuropathies of right lower limb (principal)
CPT/HCPCS: 36415; 64450; 84703; J0665

== ENCOUNTER 2024-05-09 13:35 | Outpatient (OUT) | payer OTHER, SELFPAY ==
--- OUTSIDE RECORDS SUMMARY | 2024-05-09 13:56 | XMS_ITS | CCD ---
Author Organization [facility] Care Team Providers Care Carburetor Mechanic Name Role Phone Zena Lake MD Primary [...] Vishnu Melendez, Normal Not Available Kelli 09-22-2023 [facility] Telephone (OBOLTW) NOA SILVESTRE ([id number]) 1980 F [place] Date Time Provider Department 09/22/23 AKIL SMILEY During your visit today, we recorded the following information about you: Gilda Whitfield RN 09/22/2023 3:48 PM Signed Letter received from [facility]- No records found on pt. Scanned into pt chart. Allergies As of Date: 09/22/2023 Noted Allergy Reaction NO KNOWN ALLERGIES 05/21/2010 Date Reviewed: 09/08/2023 Reviewed by: Mounika Brandon LPN - Fully Assessed Reason for Visit: Request Outside Medical Records [[id number]] Prescriptions as of 09/22/2023 - spironolactone (ALDACTONE) 100 mg tablet Take 100 mg by mouth once daily. - Levonorgestrel-Ethinyl Estrad (AVIANE) 0.1mg - 20mcg per tablet Take 1 tablet by mouth as directed. Skip week of placebo pills and start new blister pack. 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 Per the last CREAM BEATER note in our system from 2010, she [...] L3 SAB0 IAB1 Ectopic0 Multiple0 Live Births3 Secy History LMP: 08/15/2023 (Approximate), Having periods Age at Menarche: Age at First : Age at Menopause: Secy History Comments: Sexual Activity: Yes; Male Contraception: [...] kg), la (more content not included)... Normal [facility]08[facility]OB[facility] NOA SILVESTRE ([id number]) 1980 F [place] Date Time Provider Department [...] per tablet Class: Normal Route: ORAL Order: [id number] E-Prescribing Status: Receipt confirmed by pharmacy (09/08/2023 [...] by MARCIA GA RN on 09/08/23 Normal [facility] HCG QUAL UR B/Oon 09-08-2023 status Negative neg - pos [facility] Quality Check Yes [facility] Vital Signs Date Time Vital Sign Value Performing Clinician Bertin flores 09-08-2023 09:04-0400 Body weight 82.1 kg Akil Smiley MD Work Phone: [facility] 09-08-2023 09:04-0400 Diastolic blood pressure 78 mm[Hg] Akil Smiley MD Work Phone: [facility] 09-08-2023 09:04-0400 Heart rate 81 /min Akil Smiley MD Work Phone: [facility] 09-08-2023 09:04-0400 Systolic blood pressure 112 mm[Hg] Akil Smiley MD Work Phone: [facility] Encounters Encounter Date Encounter Type Care Provider [...] Start: 09-08-2023 End: 09-08-2023 ambulatory AKIL SMILEY Facility:[facility] Start: 09-08-2023 End: 09-08-2023 Patient encounter procedure Akil Smiley MD Work Phone: Obstetrics/Gynecolog y Comment on above: Endometriosis (Prima ry Dx) Procedures Date Procedure Procedure Detail Performing Clinician Start: 09-08-2023 Urine test visual color cmprsn meths Akil Smiley MD Work Phone: Plan of Treatment Date Care Activity Detail Author Start: 09-08-2023 End: 09-08-2024 ENDOMETRIOSIS [facility] ENDOMETRIOSIS [facility] Anc Imaging Routine Endometriosis Expected: 09/08/2023, Expires: 09/08/2024 [facility] Work Phone: Comment on above: Expected: 09/08/2023 , Expires: 09/08/2024 Start: 07-14-2023 Covid-19 Vaccine () Covid-19 Vaccine () [facility] Start: 07-14-2023 Influenza vaccination Influenza Vacc ine (#1) [facility] Start: 2022 Mammography Mammogram Screening [facility] Start: 11-13-2022 Depression Assessment Depression Ass essment [facility] Start: 09-19-2022 Urine microalbumin profile DTaP,Tdap,Td Vaccine (2 - Td or Tdap) [facility] Start: 02-01-2016 Pap Testing Pap Testing [facility] Start: 2012 HPV Testing HPV Testing [facility] Start: 2000 Hepatitis C Screening Hepatitis C Sc cyn [facility] Start: 2000 HIV Screening HIV Screening [facility] Start: 1980 Hepatitis B Vaccine (1 of 3 - 3-dose series) Hepatitis B Vaccine (1 of 3 - 3-dose series) [facility] Payers Date Payer Category Payer Private Health Insurance DAPHNIE KILPATRICK OAP [id number] 2022-Present [phone] [address] [place] [address] Open Access [id number] 2021 Private Health Insurance [id number] 1980 Unknown [id number] 1980 Unknown [id number] 1980 Unknown [id number] 1980 Unknown [id number] 1982 Unknown [id number] 1980 Unknown [id number] Social History Date Type Detail Facility Start: 09-08-2023 [facility] History of tobacco use Current smoker [facility] History of tobacco use Cigarette Smoker [facility] Start: 09-08-2023 Tobacco use and exposure Smoke less tobacco non-user [facility] Start: 09-08-2023 Alcohol intake Current drinke r of alcohol (finding) [facility] Start: 09-08-2023 History of Social function [facility] Start: 09-08-2023 Tobacco use panel [facility] National Score (1-10 0), lower number is lower risk 88 [facility] Start: 09-08-2023 Tobacco [facility] Start: 1980 Sex Assigned At Female [facility] Start: 09-07-2023 Gender identity Identifies as female gender (finding) [facility] Start: 09-07-2023 Sexual orientation Heterosexual (rosalee ying) [facility] Note 09-08-2023 Telephone Encounter - Akil Smiley [...] per tablet Class: Normal Route: ORAL Order: [id number] E-Prescribing Status: Receipt confirmed by pharmacy (09/08/2023 9:54 AM EDT) It states take 3 please advise, will take a verbal. documented in this encounter [facility] Progress note 09-08-2023 Note Date & Type Note Facility 09-08-2023 Note HNO ID: [id number] Author: Akil Smiley MD Service: ? 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 Per the last CREAM BEATER note in our system from 2010, she [...] L3 SAB0 IAB1 Ectopic0 Multiple0 Live Births3 Secy History LMP: 08/15/2023 (Approximate), Having periods Age at Menarche: Age at First : Age at Menopause: Secy History Comments: Sexual Activity: Yes; Male Contraception: [...] or skin ch (more content not included)... 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 Per the last CREAM BEATER note in our system from 2010, she [...] L3 SAB0 IAB1 Ectopic0 Multiple0 Live Births3 Secy History LMP: 08/15/2023 (Approximate), Having periods Age at Menarche: Age at First : Age at Menopause: Secy History Comments: Sexual Activity: Yes; Male Contraception: [...] normal. Vitals reviewed. Exam conducted with a manager utilities present (Mounika Brandon MA). 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 [facility] [place] 09/08/2023 2:06 PM --------- Medical Decision Making: Problems: Moderate: 1+ chronic illnesses with change Data: Unique source(s) for external note(s) reviewed: 1 Unique test(s) ordered: 2 Risk: Low: Low risk from testing/treatment Moderate: Drug management Medical Decision Making Level: 4 - Moderate documented in this encounter [facility] Evaluation note Note Date & Type Note Facility Evaluation note Diagnosis Endometriosis Endometriosis, site unspecified documented in this encounter [facility] Evaluation note Note Date & Type Note Facility Evaluation note Diagnosis Endometriosis- Primary Endometriosis, site unspecified documented in this encounter [facility] Reason for referral (narrative) Diagnostic Procedure Only (Routine) - Authorized Note Date & Type Note Facility Reason for referral (narrati ve) Specialty Diagnoses / Procedures Referred By Contac t Referred To Contact [facility] Diagnoses Endometriosis Procedures ENDOMETRIOSIS U/S WHI US PELVIC NONOBSTETRIC REAL[place] [address] [place] [address] [facility] [address] [place] [address] Referral ID Status Reason Start Date Expiration Date Visits Requested Visits Authorized [id number] Authorized Auto-Generat ed Referral 3 09/07/2024 1 1 [facility] Summary Purpose Family History No Family History [...] or prosecute any alcohol or drug abuse patient.[facility] the event this information is protected by the Federal Confidentiality of Alcohol and Drug Abuse Patient Records regulations: The Federal rules restrict any use of the information to criminally investigate or prosecute any alcohol or drug abuse patient.[facility] Reason for Visit (unrecogniz ed section and content) Reason Comments Medication Problem Reason Comments Endometriosis Patient is having se flores pain again, SHE SAID ITS BEEN CLEAR FOR ABOUT 8 YEARS. Care Teams (unrecognized sec tion and content) Carburetor Mechanic Relationship Specialty Start Date End Date Wonderly, Zena Thacker MD PCP - General 05/18/10 Carburetor Mechanic Relationship Specialty Start Date End Date Wonderly, Zena Thacker MD PCP - General 05/18/10 INFORMATION SOURCE (unrecogn ized section and content) DATE CREATED AUTHOR 09/24/2023 [facility] DATE CREATED AUTHOR AUTHOR'S GROVER CASPER 04/22/2024 [facility] dical Specialists [facility] FOR RECORDS PERTAINING TO PATIENTS WHO ARE [...] BE BASED ON THE PRIMARY CLINICAL RECORDS. [employer] provides no warranty or guarantee of the accuracy or completeness of information in this document.
--- NOTE | 2024-05-09 14:07 | P.CN_ITS ---
Consult Note: HPI Data of Consult Patient: known to practice within the last 3 years Requesting Physician: Yanet Mendez NP Primary Care Provider: SALVATORE LORA Consult Narrative Reason for consult: chronic right sided low back pain Narrative: Noa Burden a pleasant 43 year old female presents for evaluation and management of chronic right sided low back pain. Patient has had chronic low back pain greater than 1 year that has failed to respond to greater than 6 weeks of PT/HEP, conservative medications such as tylenol and ibuprofen, and heat/ice. Lumbar MRI reveals lumbar spondylosis, and moderate bilateral foraminal narrowing at L5-S1. Patient reports pain 6/10, increasing to 8/10 with running, standing, walking, twisting, heavy lifting. Pain sharp aching throbbing, occasional sharp and intense. recently underwent right L4-5 L5-S1 facet medial branch block #1 with no improvement and right superior gluteal nerve injection w ithout improvement. Patient has not started baclofen 10mg BID PRN due to concerns of side effects. Mild relief from TENS unit. cc:: CC: Yanet Mendez NP Review of Systems ROS Status of ROS 10 or more systems reviewed and unremark able except as noted in history and below Musculoskeletal Reports: back pain, extremity pain and joint pain PFSH [facility] Medical History (Updated 05/09/24 @ 14:08 by Yanet Mendez NP) Neck pain ?M54.2 - Cervicalgia (ICD-10) Low back pain ?M54.50 - Low back pain, unspecified (ICD-10) Asthma ?J45.909 - Unspecified asthma, uncomplicated (ICD-10) Form of muscle Irregular heart beat ?I49.9 - Cardiac arrhythmia, unspecified (ICD-10) Surgical History S/P cholecystectomy ?Z90.49 - Acquired absence of other specified parts of digestive tract (ICD- 10) S/P laparoscopy ?Z98.890 - Other specified postprocedural states (ICD-10) S/P laparotomy ?Z98.890 - Other specified postprocedural states (ICD-10) Meds Home Medications and Allergies Home Medications ?Medication ?Instructions ?Recorded ?Confirmed ?Type baclofen 10 mg tablet 10 mg PO BID PRN muscle spasm 05/01/24 06/18/24 History semaglutide 0.25 mg or 0.5 mg (2 0.25 mg subcut QWEEK 03/13/24 04/30/24 History mg/3 mL) subcutaneous pen injector (Ozempic) spironolactone 100 mg tablet 100 mg PO DAILY 03/13/24 04/30/24 History Allergies Allergy/AdvReac Type Severity Reaction Status Date / Time No Known Drug Allergies Allergy Verified 04/30/24 07:39 Exam Constitutional Documenting provider has reviewed patient's vital signs: yes Common normals: no apparent distress, oriented x3, healthy appearing, alert and well nourished General appearance: cooperative HENMT Common normals: normocephalic, hearing grossly normal bilaterally and moist oral mucous membranes Head and scalp: normocephalic Eye Common normals: PERRL Pupil: PERRL Neck & C-Spine Common normals: full ROM General: normal visual inspection Chest Common normals: inspection of chest normal Respiratory Common normals: normal respiratory effort, no retractions and no use of accessory muscles Back & Pelvis Lumbar spine/lower back: ROM limited, pain with ROM, paraspinal muscle tenderness, paraspinal muscle spasm and straight leg raise negative bilaterally Sacroiliac joints: SI joint(s) abnormal Other: Right SIJ positive eloy(patricks), gaenslens, thigh thrust, compression test notable myofascial swelling/spasms to right paralumbar spine tenderness and dysthesia across right superior gluteal nerve Extremity Common normals: normal to inspection and full ROM Neuro Common normals: oriented x3, CN's II-XII intact bilaterally, moves all extremities, no focal motor deficits, no sensory deficits noted and deep tendon reflexes 2+ bilaterally Sensorium/orientation: alert Motor exam: strength 5/5 throughout and no movement abnormalities noted Psych Common normals: mental status grossly normal, thought process normal, cooperative, affect normal, speech normal and activity/motor behavior normal Speech: normal speech Thought process: normal thought process Results Additional Findings Additional findings: If on a controlled substance or opioids, I have checked an [place]AR[place] report on this patient and there are no aberrancies noted in the prescribing history.??If on a controlled substance or opioid a drug screen was completed and reviewed within the last year, and if there has not been a drug screen completed we ordered one today to monitor higher risk, state monitored pain medication use. As part of providing excellent, safe, comprehensive care, the following was completed at our patient's visit: 1. A medication reconciliation and review to ensure accurate knowledge of current/active medications, including asking our patients to inform us about any [id number] medications or herbal remedies/nutritional supplements/alternative remedies. 2. A review to specifically ensure our patients have had annual screening for screening for depression, screening for tobacco use, and screening for unhealthy alcohol use. For concerning screenings had a discussion with the patient, provided patient education, and recommended follow-up with primary care provider when appropriate. If patient noted with a risk of falling, they received education on strength, gait, and balance training to prevent future risk of falling. Assessment and Plan Assessment and Plan (1) Lumbar stenosis with neurogenic claudication: (2) Unspecified mononeuropathy of right lower limb: (3) Chronic right-sided low back pain without sciatica: (4) Lumbar spondylosis: (5) Spondylolisthesis, lumbar region: (6) Sacroiliitis: (7) Myofascial pain: Plan refer to Dr Rivera for evaluation of right paralumbar and SIJ pain unresponsive to right L4-5 L5-S1 MBB and right superior gluteal nerve block. mild relief from TENS and motrin. could consider bilateral L5-S1 TFESI with Dr Wright under fluoroscopy for moderate bilateral foraminal stenosis and NC after evaluation with Dr Rivera continue TENS and motrin f/u 2 weeks after RENETTA
== END 2024-05-09 13:36 | disposition home or self-care (01) ==
LOC: PM 13:36
PROVIDERS: PCP Family Medicine; Visit Provider Nurse Practitioner
DX: M48.062 Spinal stenosis, lumbar region with neurogenic claudication (principal); G57.91 Unspecified mononeuropathy of right lower limb; M54.50 Low back pain, unspecified; G89.29 Other chronic pain; M47.816 Spondylosis without myelopathy or radiculopathy, lumbar region
CPT/HCPCS: G0463